=== PATIENT | female | born 1995 | race Caucasian/White ===

== ENCOUNTER 2016-08-20 17:18 | Emergency (ER) | payer OTHER ==
[2016-08-20 17:44] LABS: BILIRUBIN,URINE NEGATIVE (NEG); COLOR,URINE YELLOW; GLUCOSE, URINE (UA) NEGATIVE (NEG); NITRATE,URINE NEGATIVE (NEG); OCCULT BLOOD,URINE NEGATIVE (NEG); PH,URINE 5.5 (5.0-8.5); PROTEIN,URINE NEGATIVE (NEG)
[2016-08-20 17:47] LABS: BACTERIA,URINE MODERATE; CLARITY,URINE SLIGHTLY CLOUDY (CLEAR); SQUAMOUS EPITHELIAL CELL,UR MODERATE; URINE SAMPLE TYPE VOID
[2016-08-20 17:49] VITALS: RESP 15; TEMP 97
[2016-08-20 18:00] LABS: BASOPHILS # (AUTO) 0.04 10*3/UL; BASOPHILS % (AUTO) 0.4 % (0-1); EOSINOPHILS # (AUTO) 0.23 10*3/UL; EOSINOPHILS % (AUTO) 2.2 % (0-8); HEMATOCRIT 40.2 % (37.0-47.0); HEMOGLOBIN 13.2 g/dL (12.0-16.0); LYMPHOCYTES # (AUTO) 2.53 10*3/uL; MEAN CORPUSCULAR HEMOGLOBIN 26.3 PG (27-31); MEAN CORPUSCULAR HGB CONC 32.8 g/dL (33-37); MEAN CORPUSCULAR VOLUME 80.1 FL (81-99); MEAN PLATELET VOLUME 10.8 FL (7.4-12.2); MONOCYTES # (AUTO) 0.81 10*3/UL (0.3-0.8); MONOCYTES % (AUTO) 7.6 % (5-15); NEUTROPHILS # (AUTO) 6.94 10*3/UL; NEUTROPHILS % (AUTO) 65.5 % (50-80); RED BLOOD COUNT 5.02 10^6/uL (4.20-5.40)
[2016-08-20 18:01] LABS: PLATELET MORPHOLOGY COMMENT NORMAL MORPHOLOGY (NORM); RBC MORPHOLOGY COMMENT NORMAL MORPHOLOGY (NORM); WBC MORPHOLOGY COMMENT NORMAL MORPHOLOGY (NORM)
--- NOTE | 2016-08-20 20:23 | DI ---
HISTORY: Right lower quadrant abdominal pain. COMPARISON: None available. TECHNIQUE: Sonographic images were obtained through the pelvis transvaginally. FINDINGS: Examination demonstrates a thickened endometrial stripe measuring 19 mm. There is no gestational sac seen. The ovaries demonstrate normal Doppler flow. There is a complex mass within the left ovary measuring 1.9 x 2.0 x 2.1 cm most consistent with a corpus luteum cyst. IMPRESSION: 1. Thickened endometrium. 2. No gestational sac seen, likely due to extremely early gestational age. Correlate with serial HCG. 3. No torsion. NOTE: The interpreting Radiologist was not present at the time of ultrasound interrogation.
--- NOTE | 2016-08-20 20:29 | DI ---
HISTORY: Right lower quadrant abdominal pain. COMPARISON: None available. TECHNIQUE: Sonographic images were obtained through the abdomen. FINDINGS: Examination demonstrates no evidence of appendicitis. There is no fluid collection. IMPRESSION: 1. No evidence of appendicitis. NOTE: The interpreting Radiologist was not present at the time of ultrasound interrogation.
--- NOTE | 2016-08-21 00:52 | PDOC ---
Abdomen/Flank HPI - General Chief Complaint: Abdomen Pain Stated Complaint: RIGHT LOWER QUAD ABD PAIN, N/V, WHITE VAG DISCH Date Seen by Provider: 08/20/16 Time Seen by Provider: 17:30 Source: POSITIVE: Patient, RN/MD Exam Limitations: POSITIVE: No limitations Nurse's Notes Reviewed & Considered: Yes - History of Present Illness Initial Comments: The patient is a 21-year-old female. Patient states that 2 days ago she had a positive tests. She states her last menstrual period ended on 2016. 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 She is has not had any vaginal bleeding. No previous abdominal surgery. She is 4 para 1 aborta 2. She was seen in the emergency room in [place], where they apparently do not have ultrasound capabilities, shortness she was sent to our facility. No fevers or chills. No nausea, vomiting, melena, hematochezia, hematemesis, dysuria or hematuria. Body Location Affected: REPORTS: Abdomen Timing: REPORTS: Constant Duration: <24 hours (Approximately 24 hours) Severity: Mild Quality: REPORTS: Sharpness Abdominal Pain Onset Location: REPORTS: RLQ Abdominal Pain Radiation: REPORTS: No radiation Context: REPORTS: None Modifying Factors: worse with: Nothing, Analgesics, Antacids, Breathing, Coughing, Defecating, Vomiting, Eating, Exercise, Lying down, Urinating, Palpation, Movement, Rest, Upright Position, Walking, Remaining Still, Other Associated Symptoms: DENIES: Denies symptoms, Back pain, Bloody Emesis, Chest pain, Coffee Grounds Emesis, Chills, Diaphoresis, Fever, Fatigue, Headache, Heartburn, Loss of Appetite, Nausea, Rash, Shortness of breath, Swelling/mass in abdomen, Syncope, Testicular Pain, Vomiting, Weakness, Grossly Bloody Diarrhea, Constipation, Diarrhea, Dysuria, Incontinent Stool, Incontinent Urine , Mucous Diarrhea, Difficulty Walking, Dizziness, Light Headedness, Numbness, Other Similar Symptoms Previously: No Recent Care Received: REPORTS: Recently Seen, Treated by MD (Seen earlier today at the emergency room in [place], as above) Any Prior Injuries Related to Current Complaint?: No - Patient Home Medications Home Medications: Home Medications Amoxicillin 500 mg PO Q8H #30 cap 08/20/16 - Patient Allergies Allergies/Adverse Reactions: Allergies Allergy/AdvReac Type Severity Reaction Status Date / Time No Known Allergies Allergy Verified 08/20/16 17:33 Past Medical History - heen HEENT History: Denies History Cardiovascular History: Denies History Respiratory History: Denies History Gastrointestinal History: Denies History Genitourinary History: Denies History Endocrine History: Denies History Musculoskeletal History: Denies History Prosthesis or Implant: No Neurological History: Denies History Blood Disorders: Denies History Psychiatric History: Denies History History of Sexually Transmitted Diseases: No Female Reproductive History: Ovarian Cyst LMP: 07/19/2016 Obstetrical History: Other (please comment) Additional Obstetrical History: MISCARRIAGE x2 : 4 Para: 1 Cancer History: Denies History In Past Year Been Physically Harmed or Verbally Threatened: No (PER PATIENT) History of MDRO: No History of Other Communicable Diseases: No Tobacco Use: Current Some Day Smoker Alcohol Use: None Substance Use Type: None Previous Surgical History: No Significant Family History: No pertinent family hx Past Medical History Reviewed: Reviewed - No Changes ROS - Limitations ROS Limitations: No Limitations Constitution: REPORTS: Denies Symptoms Cardiovascular: REPORTS: Denies Cardiac Symptoms Respiratory: REPORTS: Denies Resp Symptoms Neurological: REPORTS: Denies Neuro Symptoms Gastrointestinal: REPORTS: Abdominal Pain Endocrine: REPORTS: Denies Symptoms Musculoskeletal: REPORTS: Denies MS Symptoms Genitourinary: REPORTS: Denies Symptoms Eyes: REPORTS: Denies Symptoms ENT: REPORTS: Denies Symptoms Skin: REPORTS: Denies Skin Symptoms Lympathic: REPORTS: Denies Lympathic Symptoms Immunologic: POSITIVE: Denies Symptoms Psychiatric: POSITIVE: Denies Psych Symptoms Abdominal/Flank Pain PE - General Appearance General Appearance: POSITIVE: Alert, Cooperative, No Acute Distress, No Evidence of Trauma - HEENT HEENT: POSITIVE: Head Inspection Nml, Eyes Inspection Nml, Ears Inspection Nml, Nose Inspection Nml, Oral/Dental Inspect. Nml, Pharynx Inspect. Nml, PERRL, EOMI - Neck Neck: POSITIVE: Normal Inspection, No Apparent Injury - Respiratory Respiratory: POSITIVE: No Respiratory Distress, Breath Sounds Normal, Chest Non- Tender - Cardiovascular Cardiovascular: POSITIVE: Regular Rate and Rhythm, Heart Sounds Normal, Equal Pulses, Strong Pulses Peripheral Pulses: Radial (R): 2+, Radial (L): 2+ - Abdomen Abdomen: Soft: (All Quadrants), Normal Bowel Sounds: (All Quadrants), Denies Tenderness: (RUQ), (LUQ), (LLQ), No Splenomegaly: (All Quadrants), No Hepatomegaly: (All Quadrants), No Guarding: (All Quadrants), No Rebound: (All Quadrants), No Palpable Pulse: (All Quadrants), No Palpabale Mass: (All Quadrants), No Distention: (All Quadrants), No Rigidity: (All Quadrants), (RLQ) (very mild) Additional Abdominal Details: Abdominal examination shows bowel sounds to be active. There is very mild discomfort on firm deep direct palpation right lower quadrant without masses or organomegaly or rebound. - Genital / Rectal Pelvic: POSITIVE: External Exam Normal, Speculum Exam Normal, Bimanual Exam Normal. NEGATIVE: Vaginal Bleeding, Vaginal Discharge, Cervical Motion Tender, Adnexal Tenderness (R), Adnexal Tenderness (L), Adnexal Mass (R), Adnexal Mass ( L), Enlarged Uterus, Tender Uterus, Perineal Hematoma - Back Back: POSITIVE: Normal Inspection - Skin Skin: POSITIVE: Intact, Normal For Race, Warm, Dry, No Rash - Extremities Extremity: Non-Tender: (All Extremities), Normal ROM: (All Extremities), Normal Inspection: (All Extremities) - Neurological Neurological: POSITIVE: Oriented X3, oracle developer Normal As Tested, Motor Normal, Sensation Normal, 5, 6 - Psychological Psychiatric: POSITIVE: Affect Appropriate, Mood Appropriate Images - Complete Complete: 1 - Mild discomfort on firm palpation Abdomen Progress - Results Reviewed by me Xrays/CTs/US Reviewed by me: Yes Discussed with Radiologist: Yes Radiology Findings: Obstetrical ultrasound shows a thickened endometrial but no gestational sac seen at this time. Abdominal ultrasound shows a normal- appearing appendix. Lab Results Reviewed: Yes (beta hCG 588; 10-25 white blood cells in urine with large leukocyte Estrace) Lab Results:: Laboratory Results 08/20/16 08/20/16 Range/Units 17:40 17:56 WBC 10.59 (4.8-10.8) 10^3/uL RBC 5.02 (4.20-5.40) 10^6/uL Hgb 13.2 (12.0-16.0) g/dL Hct 40.2 (37.0-47.0) % MCV 80.1 L (81-99) FL MCH 26.3 L (27-31) PG MCHC 32.8 L (33-37) g/dL RDW Std Deviation 46.0 (39-50) fL RDW Coeff of Victor Hugo 15.8 H (11.5-14.5) % Plt Count 259 (140-350) 10*3/uL MPV 10.8 (7.4-12.2) FL Immature Gran % (Auto) 0.4 (0-5) % Neut % (Auto) 65.5 (50-80) % Lymph % (Auto) 23.9 (10-50) % Orange % (Auto) 7.6 (5-15) % Eos % (Auto) 2.2 (0-8) % Baso % (Auto) 0.4 (0-1) % Immature Gran # (Auto) 0.04 10*3/UL Neut # (Auto) 6.94 10*3/UL Lymph # (Auto) 2.53 10*3/uL Orange # (Auto) 0.81 H (0.3-0.8) 10*3/UL Eos # (Auto) 0.23 10*3/UL Baso # (Auto) 0.04 10*3/UL WBC Morphology Comment Normal morphology (NORM) Plt Morphology Comment Normal morphology (NORM) RBC Morph Comment Normal morphology (NORM) HCG, Quant 588.44 mIU/ML Ur Collection Type Void Urine Color Yellow Urine Clarity Slightly cloudy (CLEAR) Urine pH 5.5 (5.0-8.5) Ur Specific [place] 1.020 (1.005-1.030) Urine Protein Negative (NEG) mg/dl Urine Glucose (UA) Negative (NEG) mg/dL Urine Ketones Trace (NEG) Urine Occult Blood Negative (NEG) Urine Nitrate Negative (NEG) Urine Bilirubin Negative (NEG) Urine Urobilinogen 1.0 (0.2) EU/dL Ur Leukocyte Esterase Large (NEG) Urine RBC None (NONE) /hpf Urine WBC 10-25 (NONE) Ur Squamous Epith Cells Moderate (NONE) Ur Renal Epithelial Cell None (NONE) Urine Crystals None Urine Bacteria Moderate (NONE) Urine Casts None (NONE) Urine Mucus None (NONE) Urine Trichomonas None (NONE) Urine Yeast None (NONE) Ur Culture Indicated? Culture set - Patient's Progress Pain Medication Addressed: POSITIVE: Not Applicable School/Work Release Addressed: POSITIVE: Yes (Avoid intercourse until cleared for this activity by billing and quality technician) Re-examine Time: 20:30 Re-Examine Comment: Patient advised of lab results. She is to follow-up with her billing and quality technician in 48 hours for repeat beta hCG and reevaluation. Return here anytime if condition worsens in any way. Status: POSITIVE: Unchanged, Re-Examined - Consult Counseled: POSITIVE: Patient, RE: Lab Results, RE: Radiology Results, RE: DX, RE : Need for F/U Patient Care Time - Estimated PCT Patient Care Time (In Minutes): 45 Vital Signs - Recent Vital Signs Vital Signs: Vital Signs (Last 8 hours) Temp Pulse Resp BP Pulse Ox 08/20/16 17:18 97.0 F 97 15 124/76 95 - VS Reviewed Vital Signs Reviewed: Yes Discharge Clinical Impression: Abdominal pain in , Urinary tract infection in Discharge Disposition: Discharged to Home Condition: Stable Prescriptions / Orders: Amoxicillin 500 mg PO Q8H #30 cap Patient Instructions Given at Discharge: Urinary Tract Infection in Women (ED) , Acute Abdominal Pain (ED) Additional Instructions: Your ultrasound shows some thickening of the uterine endometrium, but no intrauterine is identified at this time, probably because you are so early in your . Under these circumstances, the possibility of an ectopic cannot be completely eliminated. This is what she needed to do: Follow-up with your billing and quality technician in 48 hours so they can repeat what is known as a beta hCG test, to make sure that your values for this test are trending upward. They can also reevaluate your discomfort. I have given you the phone number for the [facility] here in [place]; please call them tomorrow and arrange for appointment for the day after tomorrow. Your urinalysis also suggested you may have a urinary tract infection. Please take amoxicillin, 500 mg every 8 hours for this problem. Return any time if your pain becomes worse, you develop heavy vaginal bleeding, or if condition worsens in any way. Follow Up With: NONE,NONE [Primary Care Provider] - (Instructions as above. Please follow-up in the [facility] clinic in approximately 48 hours. Return here anytime if condition worsens in any way.)
== END 2016-08-20 20:47 | disposition home or self-care (01) ==
LOC: ER 17:18
DX: O23.41 Unspecified infection of urinary tract in pregnancy, first trimester (principal)
CPT/HCPCS: 36415; 76705; 76817; 81001; 81003; 84702; 85025; 87077; 87088; 87186; 99283

== ENCOUNTER 2016-10-05 16:16 | Emergency (ER) | payer OTHER ==
[2016-10-05 16:36] VITALS: RESP 18; TEMP 96.7
[2016-10-05 17:06] LABS: CLARITY,URINE SLIGHTLY CLOUDY (CLEAR); COLOR,URINE YELLOW; URINE SAMPLE TYPE CLEAN CATCH URINE
[2016-10-05 17:07] LABS: BILIRUBIN,URINE SMALL (NEG); GLUCOSE, URINE (UA) NEGATIVE (NEG); NITRATE,URINE NEGATIVE (NEG); OCCULT BLOOD,URINE NEGATIVE (NEG); PH,URINE 6.5 (5.0-8.5); PROTEIN,URINE 30 mg/dl (NEG)
[2016-10-05 17:09] LABS: BACTERIA,URINE RARE; SQUAMOUS EPITHELIAL CELL,UR MODERATE
--- NOTE | 2016-10-05 17:23 | PDOC ---
Female Problem HPI - General Chief Complaint: Genitourinary Complaint Stated Complaint: feels like she may have a uti Date Seen by Provider: 10/05/16 Time Seen by Provider: 16:28 Source: POSITIVE: Patient Exam Limitations: POSITIVE: No limitations Nurse's Notes Reviewed & Considered: Yes - History of Present Illness Initial Comments: The patient is a 21-year-old female. She states she is 10 weeks and 4 days . She states that for the past 2 days she has had some urinary urgency and a vague sensation of uterine cramping. She's not had any vaginal bleeding. No abdominal pain. No dysuria, no hematuria. No fevers or flank pains. Body Location Affected: REPORTS: Abdomen (As above) Timing: REPORTS: Constant Duration: >24 hours (2 days) Severity: Mild Quality: REPORTS: Cramping Context: REPORTS: Known Location of Pain: REPORTS: Pelvic Cramping Vaginal Bleeding: DENIES: Abnormal Bleeding, More Severe Than Periods, Heavier Than Periods, Similar to Periods, Orthopedic Assistant Than Periods, Spotting, Passing Clots , Passing Tissue, Other : REPORTS: Sexual History: REPORTS: Active Urinary Symptoms: REPORTS: Urinary Urgency. DENIES: Blood in Urine, Frequent Urination, Discomfort w/ Urination, Burning w/ Urination, Painful Urination, Other Discharge: DENIES: Vaginal Discharge, Vag Fluid Leak- , Breast Discharge, Other Similar Symptoms Previously: Yes Recent Care Received: REPORTS: Denies Any Prior Injuries Related to Current Complaint?: No - Patient Home Medications Home Medications: Home Medications NK [No Home Medications Reported] 10/05/16 - Patient Allergies Allergies/Adverse Reactions: Allergies Allergy/AdvReac Type Severity Reaction Status Date / Time No Known Allergies Allergy Verified 10/05/16 16:26 Past Medical History - heen HEENT History: Denies History Cardiovascular History: Denies History Respiratory History: Denies History Gastrointestinal History: Denies History Genitourinary History: Denies History Endocrine History: Denies History Musculoskeletal History: Denies History Prosthesis or Implant: No Neurological History: Denies History Blood Disorders: Denies History Psychiatric History: Denies History History of Sexually Transmitted Diseases: No LMP: 07/07/16 : 4 Para: 1 Cancer History: Denies History In Past Year Been Physically Harmed or Verbally Threatened: No History of MDRO: No History of Other Communicable Diseases: No Tobacco Use: Current Every Day Smoker Alcohol Use: None Substance Use Type: None Previous Surgical History: No Significant Family History: No pertinent family hx Past Medical History Reviewed: Reviewed - No Changes ROS - Limitations ROS Limitations: No Limitations Constitution: REPORTS: Denies Symptoms Cardiovascular: REPORTS: Denies Cardiac Symptoms Respiratory: REPORTS: Denies Resp Symptoms Neurological: REPORTS: Denies Neuro Symptoms Gastrointestinal: REPORTS: Denies GI Symptoms Endocrine: REPORTS: Denies Symptoms Musculoskeletal: REPORTS: Denies MS Symptoms Genitourinary: REPORTS: Other (Urinary urgency) Eyes: REPORTS: Denies Symptoms ENT: REPORTS: Denies Symptoms Skin: REPORTS: Denies Skin Symptoms Immunologic: POSITIVE: Denies Symptoms Psychiatric: POSITIVE: Denies Psych Symptoms Female Genitourinary Exam - General Appearance General Appearance: POSITIVE: Alert, Cooperative, No Acute Distress, No Evidence of Trauma - Neck Neck: POSITIVE: Normal Inspection, No Apparent Injury - Respiratory Respiratory: POSITIVE: No Respiratory Distress, Breath Sounds Normal, Chest Non- Tender - Cardiovascular Cardiovascular: POSITIVE: Regular Rate and Rhythm, Heart Sounds Normal, Equal Pulses, Strong Pulses Peripheral Pulses: Radial (R): 2+, Radial (L): 2+ - Abdomen Abdomen: POSITIVE: Soft, Normal Bowel Sounds, Non-Tender, No Distention. NEGATIVE: No Organomegaly (Gravid uterus, nontender) - Back Back: POSITIVE: Normal Inspection. NEGATIVE: CVA Tenderness (R), CVA Tenderness (L) - Skin Skin: POSITIVE: Intact, Normal For Race, Warm, Dry, No Rash - Extremities Extremity: Non-Tender: (All Extremities), Normal ROM: (All Extremities), Normal Inspection: (All Extremities) - Neurological / Psychological Neurological: POSITIVE: Oriented X3, web developer programmer Normal As Tested, Motor Normal, Sensation Normal, 5, 6 Female Genitourinary Progress - Results Reviewed by me Lab Results Reviewed: Yes Lab Results:: Laboratory Results 10/05/16 Range/Units 16:30 Ur Collection Type Clean catch urine Urine Color Yellow Urine Clarity Slightly cloudy (CLEAR) Urine pH 6.5 (5.0-8.5) Ur Specific [place] 1.020 (1.005-1.030) Urine Protein 30 (NEG) mg/dl Urine Glucose (UA) Negative (NEG) mg/dL Urine Ketones 15 (NEG) Urine Occult Blood Negative (NEG) Urine Nitrate Negative (NEG) Urine Bilirubin Small (NEG) Urine Urobilinogen 1.0 (0.2) EU/dL Ur Leukocyte Esterase Small (NEG) Urine RBC None (NONE) /hpf Urine WBC 3-5 (NONE) Ur Squamous Epith Cells Moderate (NONE) Ur Renal Epithelial Cell None (NONE) Urine Crystals None Urine Bacteria Rare (NONE) Urine Casts None (NONE) Urine Mucus Rare (NONE) Urine Trichomonas None (NONE) Urine Yeast None (NONE) Ur Culture Indicated? Culture not set - Patient's Progress Pain Medication Addressed: POSITIVE: Not Applicable School/Work Release Addressed: POSITIVE: Not Applicable Re-Examine Time: 17:15 Status: POSITIVE: Unchanged, Re-Examined - Consult Counseled: POSITIVE: Patient, RE: Lab Results, RE: DX, RE: Need for F/U Patient Care Time - Estimated PCT Patient Care Time (In Minutes): 21 Vital Signs - Recent Vital Signs Vital Signs: Vital Signs (Last 8 hours) Temp Pulse Resp BP Pulse Ox 10/05/16 16:28 96.7 F L 131 H 18 124/63 97 - VS Reviewed Vital Signs Reviewed: Yes Discharge Clinical Impression: Normal exam Discharge Disposition: Discharged to Home Condition: Stable Patient Instructions Given at Discharge: (ED) Additional Instructions: Urinalysis is essentially normal; we will get a urine culture to make sure you do not have a urinary tract infection, but I do not think this is likely. The uterine discomfort is probably simply due to growing of the uterus as her progresses. Follow-up with your primary care provider or rag cutting machine tender. Return if you develop any vaginal bleeding or if condition worsens in any way whatsoever. Follow Up With: NONE,NONE [Primary Care Provider] - (Instructions as above. Follow-up with your primary care provider.)
== END 2016-10-05 17:25 | disposition home or self-care (01) ==
LOC: ER 16:16
DX: O26.891 Other specified pregnancy related conditions, first trimester (principal); R35.0 Frequency of micturition
CPT/HCPCS: 81001; 81003; 87088; 99282